=== PATIENT | female | born 1980 | race Two or more races ===

== ENCOUNTER 2018-07-10 12:45 | Outpatient (CLI) | payer OTHER ==
[~2018-07-10 12:45] MED LIST: AMOXIL125 MG PO; NORFLEX100 MG PO; RELAFEN500 MG PO; TRAMADOL HCL-AP1 TAB PO; TRAMADOL HCL25 GM MC
== END 2018-07-10 13:01 | disposition home or self-care (01) ==
LOC: SONOGRAMA 12:45
DX: E89.0 Postprocedural hypothyroidism (principal)

== ENCOUNTER 2021-04-04 07:49 | Outpatient (CLI) | payer OTHER | END 2021-04-04 07:58 | disposition home or self-care (01) | LOC: SONOGRAMA 07:49 → MAMO-SONO 08:00 | PROVIDERS: ATTEND Internal Medicine Endocrinology, Diabetes & Metabolism | DX: E04.2 Nontoxic multinodular goiter (principal) ==

== ENCOUNTER → 2021-04-04 09:13 | Outpatient (CLI) | payer OTHER | END | disposition home or self-care (01) | LOC: LAB 09:13 | PROVIDERS: ATTEND Internal Medicine Endocrinology, Diabetes & Metabolism | DX: E06.3 Autoimmune thyroiditis (principal) ==

== ENCOUNTER 2022-05-21 06:37 | Emergency (ER) | payer OTHER ==
[~2022-05-21] VITALS: Ht 154.9 cm; Wt 85.7 kg
[2022-05-21] MEDS ORDERED: SYNTHROID112 MCG (06:46)
[2022-05-21] MEDS ORDERED: KETO10TA2 PO (07:59)
[2022-05-21] MEDS ORDERED: AMOX-CLAV 875-1 EACH PO (07:59)
== END 2022-05-21 08:40 ==
LOC: ER 06:37
DX: H66.91 Otitis media, unspecified, right ear (principal)

== ENCOUNTER → 2023-01-08 | Outpatient (CLI) | payer OTHER ==
[~2023-01-08] MED LIST changes: +AMOX-CLAV 875-1 EACH PO; +KETO10TA2 PO; +SYNTHROID112 MCG
== END | disposition home or self-care (01) ==
LOC: RAD 08:06
PROVIDERS: ATTEND Specialist
DX: H92.01 Otalgia, right ear (principal)

== ENCOUNTER 2024-09-01 03:41 | Emergency (ER) | payer OTHER ==
[~2024-09-01] VITALS: Ht 167.6 cm; Wt 90.7 kg
[2024-09-01] MEDS ORDERED: SYNTHROID100 MCG (03:53)
[2024-09-01] MEDS ORDERED: CLONIDINE HCL 0.1 MG TABLET PO STA (05:28)
[2024-09-01] MEDS ORDERED: hydrOXYzine PAMOATE 25 MG CAPSULE PO STA (05:28)
== END 2024-09-01 05:41 | disposition home or self-care (01) ==
LOC: ER 03:43
DX: I10 Essential (primary) hypertension (principal); E05.80 Other thyrotoxicosis without thyrotoxic crisis or storm

== ENCOUNTER 2025-03-26 17:26 | Emergency (ER) | payer OTHER ==
[~2025-03-26] VITALS: Ht 154.9 cm; Wt 83.0 kg
[~2025-03-26 17:26] MED LIST changes: +SYNTHROID100 MCG
[2025-03-26] MEDS ORDERED: COZAAR25 MG PO (17:31)
[2025-03-26] MEDS ORDERED: PLAVIX75 MG PO (17:31)
== END 2025-03-26 19:23 | disposition home or self-care (01) ==
LOC: ER 17:27
DX: R00.0 Tachycardia, unspecified (principal); E03.8 Other specified hypothyroidism; I10 Essential (primary) hypertension; N95.9 Unspecified menopausal and perimenopausal disorder